=== PATIENT | male | born 1960 | race Caucasian/White ===

== ENCOUNTER 2017-03-11 11:02 | Inpatient (IN) | payer MEDICAID ==
--- NOTE | 2017-03-11 11:23 | EDPHY ---
HPI/HX/ROS/PE/MDM Narrative: CHIEF COMPLAINT: Fatigue, chest pain HPI: This is a 56 y/o male, with a history of renal cancer and hypertension, arriving with his complaining of significant fatigue with intermittent chest pain onset yesterday. He states it took him 15 minutes to walk up to his house from his car last night because he was so tired. During this short walk, he began to experience left-sided chest tightness with some tingling in his left hand. His chest discomfort seemed to resolve, but then woke him from sleep at 03:00 this morning. He denies recent illness, recent trauma, fever, hemoptysis, nausea, vomiting, abdominal pain, diarrhea. He does note he's had some throat irritation since getting new dentures that has spread to his lungs. He states, "my lungs feel like they're on fire constantly." He is a poor historian and it's unclear when this burning sensation started, but he does not correlate it with his fatigue and chest pain last night. REVIEW OF SYSTEMS: Aside from elements discussed in the HPI, a comprehensive 10-point review of systems was reviewed and is negative. PMH: renal cancer, hypertension, pancreatitis, hyperlipidemia. SOCIAL HISTORY: Lives in [place]. at bedside. PHYSICAL EXAM: General:Patient is alert, in no acute distress. ENT:Eyes are normal to inspection. ENT inspection normal. Neck: Normal inspection. Full range of motion. Respiratory:No respiratory distress. Breath sounds normal bilaterally. Cardiovascular: Regular rate and rhythm. Strong peripheral pulses. Normal cap refill. Abdomen:The abdomen is nontender to palpation. There are no peritoneal signs. Back: Normal to inspection. No tenderness to palpation. Skin: Normal color. No rash. Warm and dry. Extremities: Normal appearance. Full range of motion. Neuro: Oriented x3. Normal motor function. Normal sensory function. ED Course: IV established. Labs drawn including CBC, CHEM, troponin. Patient placed on rn cardiac rehab. Chest x-ray ordered. The 12 lead EKG was interpreted by myself. Sinus rhythm. T wave inversion. See hard copy and/or "tracemaster" electronic copy for interpretation. 1220: Troponin is extremely elevated at 37.8. Chest x-ray normal. Cardiology paged. 1230: Consulted with Dr. Larkin, senior game advisor, in the ED. He plans to take him to the high density press laborer. 324mg PO aspirin administered. - Data Points Imaging Results: Imaging Impressions Chest X-Ray 03/11/17 11:23 Impression: Normal chest. Imaging: I viewed and interpreted images myself Laboratory Results: Laboratory Results 03/11/17 11:30 03/11/17 11:30 03/11/17 03/11/17 11:30 11:30 WBC 16.71 10^3/uL H 10^3/uL (3.80-9.50) RBC 6.28 10^6/uL 10^6/uL (4.40-6.38) Hgb 17.9 g/dL H g/dL (13.7-17.5) Hct 53.0 % H % (40.0-51.0) MCV 84.4 fL fL (81.5-99.8) MCH 28.5 pg pg (27.9-34.1) MCHC 33.8 g/dL g/dL (32.4-36.7) RDW 17.3 % H % (11.5-15.2) Plt Count 339 10^3/uL 10^3/uL (150-400) MPV 9.9 fL fL (8.7-11.7) Neut % (Auto) 84.6 % H % (39.3-74.2) Lymph % (Auto) 8.0 % L % (15.0-45.0) Pen[place] % (Auto) 6.5 % % (4.5-13.0) Eos % (Auto) 0.1 % L % (0.6-7.6) Baso % (Auto) 0.3 % % (0.3-1.7) Nucleat RBC Rel Count 0.0 % % (0.0-0.2) Absolute Neuts (auto) 14.14 10^3/uL H 10^3/uL (1.70-6.50) Absolute Lymphs (auto) 1.33 10^3/uL 10^3/uL (1.00-3.00) Absolute Monos (auto) 1.08 10^3/uL H 10^3/uL (0.30-0.80) Absolute Eos (auto) 0.02 10^3/uL L 10^3/uL (0.03-0.40) Absolute Basos (auto) 0.05 10^3/uL 10^3/uL (0.02-0.10) Absolute Nucleated RBC 0.00 10^3/uL 10^3/uL (0-0.01) Immature Gran % 0.5 % % (0.0-1.1) Immature Gran # 0.09 10^3/uL 10^3/uL (0.00-0.10) Sodium 143 mEq/L mEq/L (134-144) Potassium 3.4 mEq/L L mEq/L (3.5-5.2) Chloride 109 mEq/L mEq/L (97-110) Carbon Dioxide 25 mEq/l mEq/l (22-31) Anion Gap 9 mEq/L mEq/L (8-16) BUN 7 mg/dL mg/dL (7-23) Creatinine 0.6 mg/dL L mg/dL (0.7-1.3) Estimated GFR > 60 Glucose 109 mg/dL H mg/dL (70-100) Calcium 7.9 mg/dL L mg/dL (8.5-10.4) Troponin I 37.800 ng/mL H ng/mL (0-0.034) General Time Seen by Provider: 03/11/17 11:19 Initial Vital Signs: Initial Vital Signs Temperature (C) 36.5 C 03/11/17 11:10 Heart Rate 84 03/11/17 11:10 Respiratory Rate 17 03/11/17 11:10 Blood Pressure 120/78 03/11/17 11:10 O2 Sat (%) 96 03/11/17 11:10 O2 Delivery Mode Room Air O2 (L/minute) 2 Allergies/Adverse Reactions: No Known Allergies Allergy (Unverified 03/11/17 11:09) Home Medications: Medication Instructions Recorded NK [No Known Home Meds] 03/11/17 Departure - Departure Disposition: [facility] Inpatient Acute Clinical Impression: Elevated troponin, NSTEMI (non-ST elevated myocardial infarction) Chest pain Qualifiers: Chest pain type: other chest pain Qualified Code(s): R07.89 - Other chest pain Fatigue Qualifiers: Fatigue type: other Qualified Code(s): R53.83 - Other fatigue Condition: Fair Report Scribed for: Jules Mallory Report Scribed by: Gracia Mcgarry Date of Report: 03/11/17 Time of Report: 11:37 Physician Review and Approval Statement: Portions of this note were transcribed by an ED scribe. I personally performed the history, physical exam, and medical decision making; and confirm the accuracy of the information in the transcribed note.
--- NOTE | 2017-03-11 11:28 | CPEKG ---
Heart Rate: 63 RR Interval: 952 P-R Interval: 112 QRSD Interval: 102 QT Interval: 448 QTC Interval: 459 P [place]: 40 QRS [place]: 66 T Wave [place]: -64 EKG Severity - ABNORMAL ECG - EKG Impression: SINUS RHYTHM EKG Impression: PROBABLE LEFT ATRIAL ABNORMALITY EKG Impression: PROBABLE INFERIOR INFARCT, AGE INDETERMINATE EKG Impression: LATERAL LEADS ARE ALSO INVOLVED Electronically Signed By: Jules Mallory 11-Mar-2017 13:52:31
[2017-03-11 11:48] LABS: % IMMATURE GRANULYOCYTES 0.5 % (0.0-1.1); ABSOLUTE IMMATURE GRANULOCYTES 0.09 10^3/uL (0.00-0.10); ADD DIFF? NO; ADD MORPH? NO; ADD SCAN? NO; ATYPICAL LYMPHOCYTE FLAG 0 (0-99); FRAGMENT RBC FLAG 0 (0-99); HEMOGLOBIN 17.9 g/dL (13.7-17.5); LEFT SHIFT FLG 0 (0-99); LIPEMIA HEMOLYSIS FLAG 90 (0-99); MEAN CELL HEMOGLOBIN 28.5 pg (27.9-34.1); MEAN CELL HEMOGLOBIN CONCENTR. 33.8 g/dL (32.4-36.7); MEAN CELL VOLUME 84.4 fL (81.5-99.8); MEAN PLATELET VOLUME 9.9 fL (8.7-11.7); PLATELET CLUMPS FLAG 0 (0-99); PLATELET COUNT 339 10^3/uL (150-400); RED BLOOD CELL COUNT 6.28 10^6/uL (4.40-6.38); RED CELL DISTRIBUTION WIDTH 17.3 % (11.5-15.2)
[2017-03-11 12:03] LABS: ANION GAP 9 mEq/L (8-16); CALCIUM 7.9 mg/dL (8.5-10.4); CARBON DIOXIDE 25 mEq/l (22-31); CHLORIDE 109 mEq/L (97-110); CREATININE 0.6 mg/dL (0.7-1.3); GLOMERULAR FILTRATION RATE > 60; GLUCOSE 109 mg/dL (70-100); POTASSIUM 3.4 mEq/L (3.5-5.2); SODIUM 143 mEq/L (134-144)
[2017-03-11] MEDS ORDERED: ASPIRIN 81 MG CHEWABLE TAB PO ONE (12:32)
[2017-03-11] MEDS ORDERED: LIDOCAINE 1% 300 MG/30 ML SDV ONE (13:00)
[2017-03-11] MEDS ORDERED: IOPAMIDOL (ISOVUE-370) 150 ML BTL IV ONE ×3 (13:00→14:44)
[2017-03-11] MEDS ORDERED: fentaNYL 100 MCG/2 ML INJ ONE ×2 (13:00→14:38)
[2017-03-11] MEDS ORDERED: MIDAZOLAM 2 MG/2 ML VIAL ONE (13:00)
[2017-03-11] MEDS ORDERED: FAMOTIDINE 20 MG/NACL/50 ML BAG IV ONE (13:25)
[2017-03-11] MEDS ORDERED: POTASSIUM Cl (KCl) 10 MEQ/100 ML BAG IV ONE ×2 (13:26)
[2017-03-11 13:39] LABS: MAGNESIUM 1.7 mg/dL (1.6-2.3)
[2017-03-11] MEDS ORDERED: NITROGLYCERIN 1,500 MCG/15 ML VIAL MISC ONE (13:57)
[2017-03-11] MEDS ORDERED: BIVALIRUDIN 250 MG/5 ML VIAL IV ONE (13:57)
[2017-03-11] MEDS ORDERED: EPINEPHrine 1 MG/10 ML SYR IVP ONE (14:40)
[2017-03-11] MEDS ORDERED: ATROPINE SULFATE 1 MG/10 ML SYR ONE (14:41)
[2017-03-11] MEDS ORDERED: PHENYLEPHRINE HCL 100 MCG/ML SYR ONE (14:41)
[2017-03-11] MEDS ORDERED: EPTIFIBATIDE 20 MG/10 ML VIAL IVP ONE (15:00)
[2017-03-11] MEDS ORDERED: TICAGRELOR 90 MG TAB PO ONE ×2 (15:29→15:58)
[2017-03-11] MEDS ORDERED: ATROPINE SULFATE 1 MG/10 ML SYR IVP PRN (15:58)
[2017-03-11] MEDS ORDERED: ASPIRIN EC 325 MG TAB PO ONE (15:58)
[2017-03-11] MEDS ORDERED: ONDANSETRON 4 MG/2 ML VIAL IVP PRN (15:58)
[2017-03-11] MEDS ORDERED: NITROGLYCERIN 0.4 MG BTL SL PRN (15:58)
[2017-03-11] MEDS ORDERED: LORazepam 2 MG/ML INJ IVP PRN (15:58)
[2017-03-11] MEDS ORDERED: TEMAZEPAM 15 MG CAP PO PRN (15:58)
[2017-03-11] MEDS ORDERED: EPTIFIBATIDE 100 ML IV SCH (16:30)
[2017-03-11] MEDS: CARVEDILOL 3.125 MG TAB PO SCH (17:21)
[2017-03-11] MEDS: ATORVASTATIN CALCIUM 40 MG TAB PO SCH (17:21)
--- NOTE | 2017-03-11 17:24 | CPEKG ---
Heart Rate: 73 RR Interval: 822 P-R Interval: 108 QRSD Interval: 80 QT Interval: 412 QTC Interval: 454 P [place]: 54 QRS [place]: 69 T Wave [place]: 37 EKG Severity - BORDERLINE ECG - EKG Impression: SINUS RHYTHM EKG Impression: SHORT PA INTERVAL, ACCELERATED AV CONDUCTION EKG Impression: BORDERLINE T WAVE ABNORMALITIES Electronically Signed By: Mily Lester 12-Mar-2017 06:05:23
--- NOTE | 2017-03-11 18:39 | GCON ---
[f rep st] CONSULTATION CARDIOLOGY CONSULTATION DATE OF CONSULTATION: 03/11/2017 REASON FOR CONSULTATION: Non ST-segment elevation myocardial infarction. HISTORY OF PRESENT ILLNESS: The patient is a pleasant 56-year-old gentleman with a past medical history of hypertension, hyperlipidemia, history of renal cell carcinoma status post left nephrectomy in 2002, and a history of pancreatitis with pseudocyst as well as a history of alcoholism, who was in his usual state of health until yesterday when he began to feel fatigued as well as developing intermittent symptoms of substernal chest burning, shortness of breath, and dyspnea on exertion. These symptoms persisted intermittently throughout the course of the day. Around 10 p.m. last night, he did develop substernal chest pain while climbing a flight of stairs. This resolved with rest. He did not seek medical attention at this time. He went to sleep and woke up at approximately 0300 this morning with 6/10 dull substernal chest pain, which he describes as nonradiating with no other associated symptoms. He states he contacted his ex-, who ultimately brought him to the ER at approximately 10 o'clock this morning. He states since 3 a.m. this morning his substernal chest pain has been occurring intermittently. Currently, at the time of my exam , he is chest pain-free and in no acute distress. He denies any previous history of coronary artery disease. Risk factors for heart disease include 30-year history of smoking, hypertension , and hyperlipidemia. MEDICATIONS ON ADMISSION: None. Of note, he has been prescribed atorvastatin 20 mg daily and lisinopril 20 mg daily, but he has not taken either of these medications for at least the last month. His primary care physician is at the [facility] in [place] with a physician named Dr. Reginaldo Quintana. ALLERGIES TO MEDICATIONS: None. SOCIAL HISTORY: The patient is . He has 1 son. He is a smoker for at least the last 30 years. He has a history of alcoholism, including a history of 3 DUIs. He has gone to 2 rehab in the past. He currently drinks at least 6 drinks per day. He denies having any alcohol in the last 48 hours. He does not use illicit drugs or use marijuana. FAMILY HISTORY: No family history of premature coronary artery disease. PHYSICAL EXAM: VITAL SIGNS: Blood pressure 129/71, heart rate of 85, respiratory rate of 18, oxygen saturation 98% on 2 L, temperature 36.6. GENERAL : He is awake, alert, oriented, appropriate, in no apparent distress. NECK: There is no evidence of JVP or carotid bruits. LUNGS: Clear to auscultation with mild expiratory wheeze in the upper lung lorenzana that clears with cough. CARDIAC: S1, S2. Regular rate and rhythm. No murmurs, rubs, or gallops. PMI is not displaced. ABDOMEN: Soft, nontender, nondistended. There is no pulsatile mass or abdominal bruit. EXTREMITIES: He has 2+ bilateral femoral pulses. He has 1+ bilateral dorsalis pedis pulses. There is no evidence of cyanosis, clubbing, or edema. IMAGING: EKG demonstrates sinus rhythm with left atrial enlargement and T-wave inversions in 2, 3, aVF, as well as V5 and V6. LABORATORY TESTS: Sodium 143, potassium 3.4, chloride 109, bicarb 25, BUN 7, creatinine 0.6. Troponin 37.8. White blood cell count 16.7, Hemoglobin 17.9, Hematocrit 53, platelets 339. Chest x-ray demonstrates clear lung lorenzana. Negative chest. IMPRESSION: 1. Non ST-segment elevation myocardial infarction. 2. History of hyperlipidemia. 3. Hypertension. 4. Status post left nephrectomy secondary to renal cell carcinoma in 2002. The patient is a pleasant 56-year-old gentleman who presents with a 24-hour history of intermittent substernal chest pain in the setting of multiple coronary artery disease risk factors. Troponin was elevated on arrival at 37.8 with ECG changes consistent with ischemia. I have recommended diagnostic left heart catheterization to be done urgently. Risks and benefits of the procedure were discussed in detail. I have reviewed these with both the patient and his ex -. He is agreeable to pursue. PLAN: 1. Patient has already been given 325 mg of aspirin. 2. We will plan for left heart catheterization. 45 minutes spent in consultation and coordinating care /[id number]/MODL MTDD
--- NOTE | 2017-03-11 19:04 | CPIP ---
[f rep st] INVASIVE CARDIAC PROCEDURE DATE OF PROCEDURE: 03/11/2017 PROCEDURES: 1. Coronary angiography. 2. Stenting of right coronary artery with Synergy drug-eluting stent. 3. Stenting of circumflex coronary artery with Synergy drug-eluting stent. 4. Thrombectomy of circumflex coronary artery with Pronto and Pronto LP catheters. ACCESS AND CORONARY ANGIOGRAPHY: Access and coronary angiography was performed by Dr. Man Larkin. Coronary angiography was notable for a 100% total occlusion of the mid circumflex coronary artery, a s well as a 90% stenosis of the proximal right coronary artery representing dissection flap versus u nstable plaque. Percutaneous coronary intervention of the right coronary artery. A 6-Gambian 3D RC catheter was adva nced to just outside the ostium of the right coronary artery and images obtained. Coronary angiogra phy demonstrated a 90% stenosis involving the proximal right coronary artery. A Luge wire was advan marcy into the distal vessel and position verified by angiography. A 3.0 x 12 PROMUS drug-eluting shalom nt was placed across the lesion and deployed. Followup angiography demonstrated incomplete stent ex pansion. Given difficulty with imaging of the right coronary artery using the 3D RC catheter as wel l as limited backup support, it was decided to continue the intervention with a 6-Gambian JR4 short t ip catheter. The 3D RC catheter was withdrawn and the 6-Gambian JR4 short tip catheter was advanced and images obtained. Images confirmed incomplete stent expansion of the RCA stent. A Luge wire was placed in the distal vessel and position verified by angiography. A 3.5 x 12 Emerge balloon was us ed to post dilate the stent. Followup angiography demonstrated HIRO-3 flow. No residual stenosis. Percutaneous coronary intervention of the circumflex coronary artery. A 6-Gambian EBU 4 catheter was advanced to the left main coronary artery and images obtained. Angiography confirmed the presence of a 100% total occlusion involving the mid circumflex coronary artery. A Test Puller 50 wire was then pl aced across the lesion and images obtained. Angiography demonstrated 99% stenosis of the mid circum flex coronary artery. A 2.5 x 15 Emerge balloon was used to pre-dilate the lesion. Followup angiog hillary demonstrated significant residual stenosis. A 3.0 x 24 Synergy drug-eluting stent was then pl aced across the lesion and deployed. Followup angiography demonstrated HIRO-[address] enosis. However, there was evidence of thrombus burden distal to the stent. The thrombus burden was treated with a Pronto and Pronto LP catheters as well as Integrilin therapy. COMPLICATIONS: None. CONCLUSIONS: 1. Two-vessel coronary artery disease. 2. Status post successful percutaneous coronary intervention of the right coronary artery using Syn ergy drug-eluting stent. 3. Status post successful percutaneous coronary intervention of the circumflex coronary artery melissa Hollingsworth drug-eluting stent. /[id number]/MODL
--- NOTE | 2017-03-11 19:29 | GPN ---
[f rep st] PROCEDURE NOTE DATE OF PROCEDURE: 03/11/2017 PROCEDURES: 1. Left heart catheterization. 2. Left coronary angiography. 3. Right coronary angiography. 4. Left ventriculogram. 5. Right common femoral artery angiography. INDICATION FOR PROCEDURE: Non ST-segment elevation myocardial infarction with troponin of 37. The patient is a pleasant 56-year-old gentleman with history of hypertension and hyperlipidemia, who presented to [facility] via the Emergency Department with acute onset of substernal chest pain that began at approximately 3 a.m. this morning. Yesterday he had been experiencing int ermittent chest discomfort, shortness of breath, dyspnea, and chest burning. He did not seek medica l attention until his arrival at [facility] at somewhere between 10 and 11 a.m. this mor tammie. With ECG changes and positive troponin, I was asked to see him in consultation in the Emergency Depa rtment. Plans were made for urgent diagnostic left heart catheterization in the setting of non-ST s egment elevation myocardial infarction. PROCEDURE: After informed consent was obtained, the patient was brought to the cardiac catheterizat ion lab where he was prepped and draped in a sterile fashion. Using 1% lidocaine, the right groin w as anesthetized. Using the modified Seldinger technique, a 6-Telugu catheter was placed into the [facility] common femoral artery without complications. A JL4 catheter was used to take images of the left coronary anatomy in multiple projections. The JL4 catheter was exchanged over a guidewire for a JR 4 catheter. JR4 catheter was used to take images of the right coronary anatomy in multiple projecti ons. JR4 catheter was exchanged over a guidewire for an angled pigtail catheter. An angled pigtail catheter was used to cross the aortic valve. LVEDP was assessed. Left ventriculogram was performe d. Aortic valve gradient was assessed. Angled pigtail catheter was removed over a guidewire withou t complications. Imaging of the right common femoral artery were obtained, demonstrating appropriat e placement of right common femoral artery catheter below the inguinal ligament and above the bifurc ation of the right common femoral artery. FINDINGS: LEFT MAIN: Normal size and caliber. Bifurcates into a left anterior descending and left circumflex coronary artery. There is no evidence of coronary disease within the left main. LEFT ANTERIOR DESCENDING: There is 30% stenosis in the proximal LAD just beyond a moderate size fir st septal branch. There are some mild luminal irregularities in the distal LAD. CIRCUMFLEX VESSEL: Demonstrates total occlusion at the proximal segment of the vessel at the level of a small first obtuse marginal branch. RIGHT CORONARY ARTERY: Codominant vessel. There is a 95% proximal stenosis versus dissection. The remainder of the right coronary artery is free of coronary artery disease. LEFT VENTRICULOGRAM: Demonstrates basal and mid inferior wall hypokinesis with LVEF of 40%-45%. HEMODYNAMICS: No evidence of aortic valve gradient. LVEDP 13 mmHg. LVEF 40-45 with inferior wall hypokinesis. CONCLUSIONS: 1. Severe 2 vessel coronary artery disease with totally occluded proximal circumflex vessel and 95% occlusion of the proximal right coronary artery. 2. Evidence of ischemic cardiomyopathy with inferior wall hypokinesis, and left ventricular ejectio n fraction of 40%-45%. 3. Non-flow limiting coronary disease within the left anterior descending. I have reviewed these images with the interventional colleague, Dr. Munson. We will plan for PCI to the right coronary artery. Once this has been obtained, we will plan to work on potential opening of the circumflex vessel. /[id number]/MODL
[2017-03-12] MEDS: TICAGRELOR 90 MG TAB PO SCH ×2 (04:16→20:22)
[2017-03-12 04:26] LABS: % IMMATURE GRANULYOCYTES 0.5 % (0.0-1.1); ABSOLUTE IMMATURE GRANULOCYTES 0.07 10^3/uL (0.00-0.10); ADD DIFF? NO; ADD MORPH? NO; ADD SCAN? NO; ATYPICAL LYMPHOCYTE FLAG 10 (0-99); FRAGMENT RBC FLAG 0 (0-99); HEMATOCRIT 43.7 % (40.0-51.0); HEMOGLOBIN 14.6 g/dL (13.7-17.5); LEFT SHIFT FLG 0 (0-99); LIPEMIA HEMOLYSIS FLAG 80 (0-99); MEAN CELL HEMOGLOBIN 28.3 pg (27.9-34.1); MEAN CELL HEMOGLOBIN CONCENTR. 33.4 g/dL (32.4-36.7); MEAN CELL VOLUME 84.9 fL (81.5-99.8); MEAN PLATELET VOLUME 9.9 fL (8.7-11.7); PLATELET CLUMPS FLAG 0 (0-99); PLATELET COUNT 289 10^3/uL (150-400); RED BLOOD CELL COUNT 5.15 10^6/uL (4.40-6.38); RED CELL DISTRIBUTION WIDTH 16.2 % (11.5-15.2)
[2017-03-12 04:45] LABS: ANION GAP 8 mEq/L (8-16); CARBON DIOXIDE 24 mEq/l (22-31); CHLORIDE 105 mEq/L (97-110); CHOLESTEROL 112 mg/dL (140-220); CHOLESTEROL/HDL RATIO 3.11 RATIO (1.00-4.97); CREATININE 0.8 mg/dL (0.7-1.3); GLOMERULAR FILTRATION RATE > 60; GLUCOSE 95 mg/dL (70-100); HIGH DENSITY LIPOPROTEIN 36 mg/dL (40-65); LDL/HDL RATIO 1.61 RATIO (1.00-3.64); LOW DENSITY LIPOPROTEIN 58 mg/dL (80-100); MAGNESIUM 1.8 mg/dL (1.6-2.3); NON-HIGH DENSITY LIPOPROTEIN 76 mg/dL (90-129); POTASSIUM 4.4 mEq/L (3.5-5.2); SODIUM 137 mEq/L (134-144); TRIGLYCERIDE 94 mg/dL (40-150); VERY LOW DENSITY LIPOPROTEINS 18 mg/dL (8-25)
--- NOTE | 2017-03-12 06:19 | CPEKG ---
Heart Rate: 68 RR Interval: 882 P-R Interval: 96 QRSD Interval: 82 QT Interval: 460 QTC Interval: 490 P [place]: 0 QRS [place]: 81 T Wave [place]: -35 EKG Severity - BORDERLINE ECG - EKG Impression: SINUS RHYTHM VS ECTOPIC ATRIAL RHYTHM EKG Impression: SHORT TX INTERVAL, ACCELERATED AV CONDUCTION EKG Impression: BORDERLINE PROLONGED QT INTERVAL EKG Impression: COMPARED WITH 11 MAR 2017 AT 17:22, QT INTERVAL NOW LONGER Electronically Signed By: Malathi Vargas 12-Mar-2017 15:47:05
--- NOTE | 2017-03-12 09:01 | PDCARPN ---
Cardiology Progress Note Chief Complaint: Pt admitted yesterday with chest pain. Pt is pain free today. No complaints. Assessment/Plan: Assessment: 1. NSTEMI 2. CAD with PCI to RCA and LCX 3. Ischemic Cardiomypathy with LVEF 40-45% with inferior HK 4. Hypertension 5. Hyperlipidemia 6. Alcoholism Plan: 1. start magnesium oxide 400 mg daily 2. continue aspirin 81 mg daily 3. continue brilinta 90 mg twice daily 4. continue Coreg 3.125 mg bid 5. continue Atorvastatin 40 mg daily 6. Echocardiogram today 7. Continue CIWA protocol 8. OK to transfer to [facility] 03/12/17 09:01 Subjective: Mr. Chatterjee is a pleasant 56 year old who presented yesterday with chest pain with NSTEMI with initial troponin of 37 who was found to have significant 2 vessel cad with 95% prox RCA and occluded prox to mid LCX with successful PCI to RCA and LCX. LVEF of 40-45% with mid and basal inferior hypokinesis. Pt has been stable overnight. No complaints. No events on telemetry. BP is stable. ECG from last PM demosntrates short FL and slighly prolonged QT interval. Mg of 1.8 this AM and Potassium of 4.4. Groin site is without hematoma or ecchymosis. Distal pulses intact. Note troponin of approx 75 and BNP of 2900. Echo pending. Time Spent With Patient: 25 minutes Result Diagrams: 03/12/17 04:15 03/12/17 04:15 Telemetry: NSR to sinus bradycardia Echocardiogram: Echo pending today - Physical Exam Constitutional: WDWN Ears, Nose, Mouth, Throat: moist mucous membranes Cardiovascular: regular rate and rhythm, no murmurs, no rubs, no gallops, other (No edema. Right groin without hematoma or ecchymosis ) Peripheral Pulses: 2+: dorsalis-pedis (R), dorsalis-pedis (L) Respiratory: clear to auscultate bilat Gastrointestinal: normoactive bowel sounds Skin: no rashes Musculoskeletal: no muscular tenderness Psychiatric: cooperative, interactive, following commands, not anxious ICD10 Worksheet Patient Problems: Problems Problem Status Onset Chest pain Acute Elevated troponin Acute Fatigue Acute NSTEMI (non-ST elevated myocardial infarction) Acute
[2017-03-12] MEDS: ATORVASTATIN CALCIUM 40 MG TAB PO SCH (09:07)
[2017-03-12] MEDS: CARVEDILOL 3.125 MG TAB PO SCH ×2 (09:07→17:46)
[2017-03-12] MEDS: ASPIRIN EC 81 MG TAB PO SCH (09:08)
--- NOTE | 2017-03-12 13:11 | ECHO ---
[id number] + + [id number] : : [place] [address] : : [phone] + Adult Echocardiographic Report + ----+ :Name: DANIELA MANNING LStudy Date: 03/12/2017 11:35 AM : : Hospital Admission Number: [id number] Location: 206: :: 1960 Gender: Male Height: 67 in : :Age: 56 yrs Race: WH Weight: 170 lb : :Reason For Study: Eval LV Fx : : BSA: 1.9 meters2 : :History: Eval LV Fx, Post Cath : + ----+ MMode/2D Measurements \T\ Calculations IVSd: 1.1 cm LVIDd: 5.3 cm FS: 21.9 % Ao root diam: 3.9 cm LVPWd: 1.2 cm LVIDs: 4.1 cm EDV(Teich): 133.7 ml ACS: 2.5 cm ESV(Teich): 75.1 ml EF(Teich): 43.9 % Normal Measurement Values: + + :LVIDd (3.5-5.7cm) IVSd (0.6-1.1cm) LVPWd (0.6-1.1cm) Aortic Root (2.0-3.7cm)Left Atrium (1.5-4.0cm): :LV Vol(d) (76-115ml) LV Vol(s) (29-48ml) Ejec Fraction (50-65%)PV Alfredo (0.6- 1.2m/s) TV Alfredo (0.4-1.0m/s) : :MV E Alfredo (0.8-1.0m/s)MV A Alfredo (0.3-1.0m/s)LVOT Alfredo (0.7-1.2m/s) Asc Ao Alfredo ( 0.9-1.8m/s) : + + Doppler Measurements \T\ Calculations MV E max alfredo: Ao V2 max: LV V1 max: PA V2 max: 47.9 cm/sec 95.0 cm/sec 74.5 cm/sec 93.7 cm/sec MV A max alfredo: Ao max PG: LV V1 max PG: PA max P.7 cm/sec 3.6 mmHg 2.2 mmHg 3.5 mmHg MV E/A: 0.80 Left Ventricle The left ventricle is normal in size. There is mild concentric left ventricular hypertrophy. Ejection Fraction = 40-45%. There is Doppler evidence for diastolic dysfunction. There is posterior wall hypokinesis. + ---------+ : : :I WMSI = 1.19 % Normal = 81 : + + + ---------+ :+ +:+ ++ +: : :: ::: :: :: : :: ::: :: :: : :: ::: :: :: : :: ::: :: :: : :: ::: :: :: : :: ::: :: :: : :: ::+ ++ +: : :: ::+ ++ +: : :: ::: :: :: : :: ::: :: :: : :: ::: :: :: : :: ::: :: :: : :: ::: :: :: : :: ::: :: :: : :+ +:+ ++ +: : + + ---------+ : : : : : Segments Size : : :+--------+ --------+: :X - Cannot 0 - (2) - Mildly 2 - ::1-2 : small :: :Interpret Hyperkinetic 1 - Normal Hypokinetic Hypokinetic :+--------+ --------+: : 7 - ::3-5 : moderate:: :3 - Akinetic 4 - 5 - 6 - Akinetic Dyskinetic :+--------+ --------+: : Dyskinetic Aneurysmal w/scar w/scar ::6-14 : large :: : :+--------+ --------+: : ::15-16 : diffuse :: : :+--------+ --------+: + + ---------+ Right Ventricle The right ventricle is normal in size and function. Atria The left atrial size is normal. Right atrial size is normal. The interatrial septum is intact with no evidence for an atrial septal defect. Mitral Valve The mitral valve is normal in structure and function. There is no evidence of mitral valve prolapse. There is no mitral valve stenosis. There is no mitral regurgitation noted. Tricuspid Valve Normal tricuspid valve. There is trace tricuspid regurgitation. Right ventricular systolic pressure is normal. Aortic Valve The aortic valve is normal in structure and function. There is no aortic stenosis. There is no aortic insufficiency. Pulmonic Valve The pulmonic valve is normal in structure and function. There is no pulmonic valvular stenosis. There is no pulmonic valvular regurgitation. Great Vessels The aortic root is normal size. Pericardium/Pleural There is no pericardial effusion. There is no pleural effusion. Conclusion A complete two-dimensional transthoracic echocardiogram was performed (2D, M-mode, Doppler and color flow Doppler). Ejection Fraction = 40-45%. There is Doppler evidence for diastolic dysfunction. The left atrial size is normal. The mitral valve is normal in structure and function. There is trace tricuspid regurgitation. Right ventricular systolic pressure is normal. The aortic valve is normal in structure and function. There is no pericardial effusion. There is mild concentric left ventricular hypertrophy. There is no pleural effusion. There is posterior wall hypokinesis. Final Reading Physician: German Larkin electronically signed on 03/12/2017 01:10 PM Ordering Physician: German Larkin Performed By: Ebenezer Cole, ALLACS
[2017-03-12] MEDS: MAGNESIUM OXIDE 400 MG TAB PO SCH (15:37)
[2017-03-12] MEDS: NICOTINE 21 MG/24 HR PATCH TD SCH (15:38)
[2017-03-12] MEDS ORDERED: CALCIUM CARBONATE 500 MG CHEWABLE TAB PO PRN (18:04)
[2017-03-12 22:48] VITALS: O2SAT 92
[2017-03-13 04:42] LABS: POTASSIUM 4.3 mEq/L (3.5-5.2)
[2017-03-13 04:43] LABS: ANION GAP 7 mEq/L (8-16); CALCIUM 9.5 mg/dL (8.5-10.4); CARBON DIOXIDE 25 mEq/l (22-31); CHLORIDE 103 mEq/L (97-110); CREATININE 0.8 mg/dL (0.7-1.3); GLOMERULAR FILTRATION RATE > 60; GLUCOSE 90 mg/dL (70-100); SODIUM 135 mEq/L (134-144)
[2017-03-13 08:15] VITALS: BP 123/68; PULSE 75; RESP 18; TEMP 98.1
[2017-03-13] MEDS: ATORVASTATIN CALCIUM 40 MG TAB PO SCH (08:18)
[2017-03-13] MEDS: CARVEDILOL 3.125 MG TAB PO SCH (08:19)
[2017-03-13] MEDS: MAGNESIUM OXIDE 400 MG TAB PO SCH (08:19)
[2017-03-13] MEDS: NICOTINE 21 MG/24 HR PATCH TD SCH (08:19)
[2017-03-13] MEDS: ASPIRIN EC 81 MG TAB PO SCH (08:19)
[2017-03-13] MEDS: TICAGRELOR 90 MG TAB PO SCH (08:19)
--- NOTE | 2017-03-13 12:39 | GDS ---
[f rep st] DISCHARGE SUMMARY DISCHARGE DIAGNOSES: 1. Coronary artery disease. Clinical presentation with non-ST elevation myocardial infarction. He is status post PCI and stenting of the right coronary artery and the circumflex coronary artery usi ng Synergy drug-eluting stents. 2. History of tobacco abuse. 3. History of alcohol abuse. HOSPITAL COURSE: The patient was admitted on the . At that point, he had been experiencing vipin st discomfort for approximately 12 hours. This was intermittent and described as a burning in his c hest. He was taken to coronary angiography which demonstrated high-grade 2 vessel disease. He unde rwent PCI and stenting as noted above by Dr. Clint Munson. A 3.0 x 12 mm PROMUS stent was placed in the proximal right coronary artery. A 3.0 x 24 mm Synergy stent was placed in the mid circumflex co ronary artery. The LAD did not demonstrate significant disease. His ejection fraction was noted to be very mildly reduced by echocardiography performed the day after the procedure. Ejection fractio n, at that time, was 40% to 45%. There was evidence of posterior wall hypokinesis. During the karlie tana of the patient's hospital course, he remained stable. He had no recurrent chest discomfort. He was treated with dual antiplatelet therapy, statin therapy and beta-karsten therapy. The patient admits to drinking at least 3 beers daily and occasional hard liquor on the weekends. He smokes a pack of cigarettes daily. During his hospitalization here, he did not manifest any signs of alcohol withdrawal. PERTINENT LABORATORY TESTS: His peak troponin was 74.5. Renal function was noted to be normal. To allison cholesterol 112, LDL 58, HDL 36. DISCHARGE PHYSICAL EXAMINATION: VITAL SIGNS: His blood pressure is 97/63 with a mean of 74, his hea rt rate is 62, oxygen saturations on room air 92%. He has been afebrile. GENERAL: He is in no acut e distress. HEENT: No jugular venous distention. RESPIRATORY: There are clear lung lorenzana bilate rally. CARDIAC: Regular rate and rhythm. No murmurs, gallops, or rubs. EXTREMITIES: Without diana ma. DISCHARGE MEDICATIONS: He will be discharged on Ticagrelor 90 mg twice daily, Coreg 3.125 mg twice daily, Atorvastatin 40 mg daily and aspirin 81 mg daily. FOLLOWUP: He has been asked to follow up with Dr. German Larkin within the next 1 to 2 weeks. REFERRALS: He will be referred to cardiac rehab. /[id number]/MODL
== END 2017-03-13 09:55 | disposition home or self-care (01) | DRG 247 ==
LOC: F2N 15:51 → OBSVTOIN 03-12 08:13 → F2W 03-12 11:16
PROVIDERS: ADMIT Internal Medicine Cardiovascular Disease; ATTEND Internal Medicine Cardiovascular Disease
PROC: 027135Z Dilation of Coronary Artery, Two Arteries with Two Drug-eluting Intraluminal Devices, Percutaneous Approach (ICD-10-PCS; principal; 2017-03-11)
PROC: B2111ZZ Fluoroscopy of Multiple Coronary Arteries using Low Osmolar Contrast (ICD-10-PCS; principal; 2017-03-11)
PROC: 4A023N7 Measurement of Cardiac Sampling and Pressure, Left Heart, Percutaneous Approach (ICD-10-PCS; principal; 2017-03-11)
PROC: B2151ZZ Fluoroscopy of Left Heart using Low Osmolar Contrast (ICD-10-PCS; principal; 2017-03-11)
DX: I21.4 Non-ST elevation (NSTEMI) myocardial infarction (principal); I25.10 Atherosclerotic heart disease of native coronary artery without angina pectoris; I10 Essential (primary) hypertension; E78.5 Hyperlipidemia, unspecified; Z85.528 Personal history of other malignant neoplasm of kidney; Z87.891 Personal history of nicotine dependence
CPT/HCPCS: C1725; C1757; C1760; C1769; C1874; C1887; C9600; J0461; J0583; J1200; J1327; J1644; J2250; J2370; J3010; Q9967